=== PATIENT | female | born 1965 | race Caucasian/White ===

== ENCOUNTER 2017-08-09 09:21 | Emergency (ER) | payer BC ==
[~2017-08-09] VITALS: Ht 157.5 cm; Wt 84.3 kg
[~2017-08-09 09:21] MED LIST: CELEBREX200 MG PO; COUMADIN; Feosol PO; Omega III EPA + DHA PO; Osteo-Biflex,Flex-A- PO; Reglan PO; SENOKOT S,PE1 TABLET PO; THERAGRAN1 TABLET PO; Vicodin,Lortab 5/500 PO
[2017-08-09] MEDS ORDERED: XYLOCAINE VISC100 ML PO (11:56)
[2017-08-09] MEDS ORDERED: BACTRIM,SEPT1 TABLET PO (12:03)
[2017-08-09 12:27] VITALS: BP 140/74
== END 2017-08-09 12:29 | disposition home or self-care (01) ==
LOC: EME 09:21
DX: L03.011 Cellulitis of right finger (principal); J45.909 Unspecified asthma, uncomplicated; F41.9 Anxiety disorder, unspecified; F32.9 Major depressive disorder, single episode, unspecified; Z79.01 Long term (current) use of anticoagulants; Z88.0 Allergy status to penicillin
CPT/HCPCS: 99281; 99284; S0020

== ENCOUNTER → 2017-12-23 | Outpatient (CLI) | payer BC ==
[~2017-12-23] MED LIST changes: +BACTRIM,SEPT1 TABLET PO; +XYLOCAINE VISC100 ML PO
== END | disposition home or self-care (01) ==
DX: M16.11 Unilateral primary osteoarthritis, right hip (principal); R26.2 Difficulty in walking, not elsewhere classified; M25.551 Pain in right hip; M25.651 Stiffness of right hip, not elsewhere classified; Z74.1 Need for assistance with personal care; M62.81 Muscle weakness (generalized)
CPT/HCPCS: 97161 GP; 97165 GO; 97530 GP; 97535 GO

== ENCOUNTER 2018-01-04 21:13 | Inpatient (IN) | payer BC ==
[~2018-01-04] VITALS: Ht 157.5 cm; Wt 85.3 kg
[~2018-01-04 21:13] MED LIST changes: +ADDERALL20 MG PO; +DITROPAN5 MG PO; +IRON325 M1 PO; +MOBIC15 MG PO; +WELLBUTRIN XL300 MG PO; +ZESTORETIC 10-1 EAC1 PO; +ZOLOFT50 MG PO
[2018-01-05 09:49] VITALS: BP 149/77
[2018-01-05 14:19] LABS: HEMATOCRIT 35.9 % (36.0-46.0); HEMOGLOBIN 12.1 G/DL (11.9-15.5); MCH 30.5 PG (29.0-34.0); MCHC 33.7 G/DL (30.0-36.0); MCV 90.4 FL (83-99); PLATELET COUNT 248 K/uL (156-360); RBC DIS.WIDTH-CV 12.8 % (11.8-14.6); RED BLOOD COUNT 3.97 M/uL (3.80-5.20); WHITE BLOOD COUNT 7.8 K/uL (4.1-10.2)
[2018-01-05 14:36] VITALS: BP 100/59
[2018-01-05 20:10] VITALS: BP 90/51
[2018-01-05 22:25] VITALS: BP 100/55
[2018-01-06] VITALS: BP 98/52
[2018-01-06 04:03] VITALS: BP 166/94
[2018-01-06 05:48] LABS: HEMATOCRIT 36.2 % (36.0-46.0); HEMOGLOBIN 12.5 G/DL (11.9-15.5); MCV 87.7 FL (83-99)
[2018-01-06 07:32] LABS: CHLORIDE 102 MEQ/L (99-109); CREATININE 0.9 MG/DL (0.6-1.3); GFR ESTIMATE (CALCULATED) > 59 mL/min/; GLUCOSE 139 mg/dL (70-99); POTASSIUM 4.1 MEQ/L (3.7-5.4); SODIUM 136 MEQ/L (136-147); UREA NITROGEN (BUN) 13 mg/dL (9-23)
[2018-01-06 08:18] VITALS: BP 123/59
[2018-01-06 11:38] VITALS: BP 118/58
[2018-01-06 15:50] VITALS: BP 103/66
[2018-01-06 20:09] VITALS: BP 124/57
[2018-01-07 00:23] VITALS: BP 129/60
[2018-01-07 04:30] VITALS: BP 115/57
[2018-01-07 07:52] VITALS: BP 119/59
[2018-01-07] MEDS ORDERED: DOCUSATE SODIU100 MG PO (08:42)
[2018-01-07] MEDS ORDERED: LOVENOX40 MG/0.4 SC (08:43)
[2018-01-07] MEDS ORDERED: ENDOCET 5-3251 EACH PO (08:43)
[2018-01-07 12:30] VITALS: BP 129/65
== END 2018-01-07 14:25 | disposition home health service (06) | DRG 470 ==
LOC: ENRESERV 21:13 → 3WEST 01-05 09:15 → 2SOUTH 01-05 09:15 → 3WEST 01-05 14:29
PROVIDERS: Orthopaedic Surgery
PROC: 0SR902A Replacement of Right Hip Joint with Metal on Polyethylene Synthetic Substitute, Uncemented, Open Approach (ICD-10-PCS; principal; 2018-01-05)
DX: M16.11 Unilateral primary osteoarthritis, right hip (principal); I10 Essential (primary) hypertension; Z96.642 Presence of left artificial hip joint; Z56.0 Unemployment, unspecified; F98.8 Other specified behavioral and emotional disorders with onset usually occurring in childhood and adolescence; N39.9 Disorder of urinary system, unspecified; F41.9 Anxiety disorder, unspecified
CPT/HCPCS: 36415; 73501; 80048; 80053; 85014; 85018; 85025; 85027; 85610; 85730; 86850; 86900; 86901; 86920; 87641; 97530 GP; J0131; J0330; J0690; J1170; J1650; J2250; J2405; J7030; J7050; Q0175

== ENCOUNTER 2018-02-12 14:55 | Inpatient (IN) | payer BC ==
[~2018-02-12] VITALS: Ht 157.5 cm; Wt 87.8 kg
[~2018-02-12 14:55] MED LIST changes: +DITROPAN XL5 MG PO; -DITROPAN5 MG PO; +DOCUSATE SODIU100 MG PO; +ENDOCET 5-3251 EACH PO; +LOVENOX40 MG/0.4 SC
[2018-02-12 15:55] LABS: HEMATOCRIT 36.4 % (36.0-46.0); HEMOGLOBIN 12.5 G/DL (11.9-15.5); MCH 29.9 PG (29.0-34.0); MCHC 34.3 G/DL (30.0-36.0); MCV 87.1 FL (83-99); PLATELET COUNT 267 K/uL (156-360); RBC DIS.WIDTH-CV 13.2 % (11.8-14.6); RBC DIS.WIDTH-SD 41.3 % (39-53); RED BLOOD COUNT 4.18 M/uL (3.80-5.20); WHITE BLOOD COUNT 10.9 K/uL (4.1-10.2)
[2018-02-12 16:08] LABS: ALBUMIN 4.2 g/dL (3.2-4.8); CHLORIDE 109 mEq/L (99-109)
[2018-02-12 16:09] LABS: POTASSIUM 3.7 mEq/L (3.7-5.4); SODIUM 142 mEq/L (136-147)
[2018-02-12 16:11] LABS: GLUCOSE 100 mg/dL (70-99); TOTAL PROTEIN 7.1 g/dL (6.4-8.3)
[2018-02-12 16:13] LABS: TOTAL BILIRUBIN 0.3 mg/dL (0.0-1.0)
[2018-02-12 16:14] LABS: ALKALINE PHOSPHATASE 126 IU/L (3-129); CREATININE 0.8 mg/dL (0.6-1.3); GFR ESTIMATE (CALCULATED) > 59 mL/min/
[2018-02-12 16:16] LABS: AST (GOT) 16 IU/L (2-34); UREA NITROGEN (BUN) 14 mg/dL (9-23)
[2018-02-12 16:17] LABS: ALT (GPT) 13 IU/L (3-49)
[2018-02-12 16:18] LABS: LIPASE 34 U/L (1.0-51.0)
[2018-02-12 16:25] LABS: QUANTITATIVE HCG 4.8 MIU/ML
[2018-02-12 17:23] LABS: APPEARANCE SL.HAZY ((CLEAR)); BILIRUBIN NEGATIVE; BLOOD LARGE; COLOR AMBER ((YELLOW)); GLUCOSE (STRIP) NEGATIVE; KETONES 5; LEUKOCYTES NEGATIVE; NITRITE POSITIVE; PROTEIN (STRIP) 100
[2018-02-12 17:37] LABS: TROP-I INTERPRETATION NEGATIVE; TROPONIN-I < 0.01 ng/mL (0.0-0.30)
[2018-02-12 18:03] LABS: RED BLOOD CELLS 20-30 /HPF (0-5); WHITE BLOOD CELLS NONE SEEN /HPF (0-5)
[2018-02-12 18:04] LABS: BACTERIA RARE /HPF; EPITHELIAL CELLS RARE /HPF; MUCUS NONE SEEN /LPF
[2018-02-12] MEDS ORDERED: ADDERALL20 MG PO (18:24)
[2018-02-12 21:00] VITALS: BP 144/76
[2018-02-12 22:32] VITALS: BP 148/76
[2018-02-12 23:57] VITALS: BP 129/77
[2018-02-13 04:33] VITALS: BP 134/83
[2018-02-13 05:31] LABS: BASOPHIL (%) 0.3 % (0-1); EOSINOPHIL (%) 3.1 % (0-5); EOSINOPHIL COUNT 0.2 K/uL (0-0.3); HEMATOCRIT 33.6 % (36.0-46.0); HEMOGLOBIN 10.6 G/DL (11.9-15.5); IMMATURE GRANULOCYTE (%) 0.3 % (0.0-0.7); LYMPHOCYTE (%) 17.8 % (15-42); LYMPHOCYTE COUNT 1.3 K/uL (1.0-2.8); MCH 28.1 PG (29.0-34.0); MCHC 31.5 G/DL (30.0-36.0); MCV 89.1 FL (83-99); MONOCYTE (%) 8.2 % (3-12); MONOCYTE COUNT 0.6 K/uL (0-0.8); NEUTROPHIL (%) 70.3 % (45-76); NEUTROPHIL COUNT 5.1 K/uL (1.8-6.4); PLATELET COUNT 220 K/uL (156-360); RBC DIS.WIDTH-CV 13.3 % (11.8-14.6); RBC DIS.WIDTH-SD 43.6 % (39-53); RED BLOOD COUNT 3.77 M/uL (3.80-5.20); WHITE BLOOD COUNT 7.2 K/uL (4.1-10.2)
[2018-02-13 05:54] LABS: CHLORIDE 109 MEQ/L (99-109); CREATININE 0.7 MG/DL (0.6-1.3); GFR ESTIMATE (CALCULATED) > 59 mL/min/; GLUCOSE 89 mg/dL (70-99); POTASSIUM 3.6 MEQ/L (3.7-5.4); SODIUM 141 MEQ/L (136-147); UREA NITROGEN (BUN) 9 mg/dL (9-23)
[2018-02-13 07:28] VITALS: BP 131/67
[2018-02-13 10:53] VITALS: BP 129/80
[2018-02-13 15:58] VITALS: BP 121/70
[2018-02-13 23:52] VITALS: BP 115/61
[2018-02-14 07:38] VITALS: BP 119/63
[2018-02-14] MEDS ORDERED: LEVOFLOXACIN750 MG PO (10:28)
[2018-02-14] MEDS ORDERED: ONDANSETRON ODT4 MG PO (10:30)
[2018-02-14] MEDS ORDERED: TRAMADOL HCL50 MG PO (10:32)
[2018-02-14] MEDS ORDERED: COMPAZINE5 MG PO (11:28)
== END 2018-02-14 11:28 | disposition home or self-care (01) | DRG 690 ==
LOC: EXP 14:55 → EME 14:55 → 4EAST 18:35 → EDOF 18:35 → ENRESERV 18:36 → 4EAST 20:48 → ENRESERV 02-13 07:19 → 5SOUTH 02-13 10:15
PROVIDERS: Hospitalist; Nurse Practitioner Family
DX: N13.6 Pyonephrosis (principal); B96.89 Other specified bacterial agents as the cause of diseases classified elsewhere; I10 Essential (primary) hypertension; N32.81 Overactive bladder; J45.909 Unspecified asthma, uncomplicated; K21.9 Gastro-esophageal reflux disease without esophagitis; E66.9 Obesity, unspecified; Z68.35 Body mass index [BMI] 35.0-35.9, adult; K59.09 Other constipation; F32.9 Major depressive disorder, single episode, unspecified; F41.9 Anxiety disorder, unspecified; F98.8 Other specified behavioral and emotional disorders with onset usually occurring in childhood and adolescence; Z87.891 Personal history of nicotine dependence; Z96.643 Presence of artificial hip joint, bilateral; Z79.891 Long term (current) use of opiate analgesic; Z88.0 Allergy status to penicillin
CPT/HCPCS: 71275; 74174; 76705; 80048; 80053; 81003; 83605; 83690; 84484; 84702; 85025; 85027; 87040; 87086; 93005; 99281; 99285; J0696; J1170; J1956; J2270; J2405; J7030